=== PATIENT | female | born 1995 | race Caucasian/White ===

== ENCOUNTER 2016-06-29 08:21 | Emergency (ER) | payer MEDICAID ==
[~2016-06-29] VITALS: Wt 48.5 kg
[2016-06-29] MEDS ORDERED: AMOX1TAB10 PO (08:46)
[2016-06-29] MEDS ORDERED: HYDR-906 PO (08:46)
--- NOTE | 2016-06-29 08:54 | ERD ---
ER Documentation Chief Complaint Date/Time DATE: 06/29/16 TIME: 08:48 Chief Complaint TOOTHACHE, LEFT LOWER HPI Patient is a 21-year-old female who presents to the ER with left lower molar tooth pain. She states that she has had these symptoms for 2 weeks. She denies trauma. She states that she has pain with biting. She also states that the pain is radiating to her neck and head with some headaches. She denies dizziness or weakness. She denies fever or chills. She denies drainage. She states she went to the dentist yesterday but they were busy and she now has an appointment tomorrow. She denies difficulty swallowing, speaking or moving her jaw. ROS All systems reviewed and are negative except as per history of present illness. Medications Home Meds Active Scripts Hydrocodone/Acetaminophen ([place] 5-325 Tablet) 1 Each Tablet, 1 TAB PO Q6H Y for PAIN, #5 TAB Prov:DIPIKA SILVERIO PA-C 06/29/16 Amoxicillin/Potassium Clav (Amox-Clav 875-125 mg Tablet) 875-125 mg Tab, 1 TAB PO BID for 7 Days, #14 TAB Prov:DIPIKA SILVERIO PA-C 06/29/16 Allergies Allergies: Coded Allergies: No Known Allergies (Verified Allergy, 05/07/13) PMhx/Soc History of Surgery: Yes () Anesthesia Reaction: No Hx Neurological Disorder: No Hx Respiratory Disorders: No Hx Cardiac Disorders: No Hx Psychiatric Problems: No Hx Miscellaneous Medical Probl: No Hx Alcohol Use: No Hx Substance Use: No Hx Tobacco Use: No Physical Exam Vitals Vital Signs Date Time Temp Pulse Resp B/P Pulse Ox O2 Delivery O2 Flow Rate FiO2 06/29/16 08:26 98.0 83 18 146/75 98 Physical Exam GENERAL: Well-developed, well-nourished female. Appears in no acute distress. HEAD: Normocephalic, atraumatic. EYES: Pupils are equally reactive bilaterally. EOMs grossly intact. No conjunctival erythema. ENT: Moist mucous membranes. No uvula deviation. No kissing tonsils. No exudates. MOUTH: no redness, cheek swelling. tenderness to left molar. no drainage. pain with tongue depressor mastication test and manipulation. multiple caries throughout all molars. NECK: Supple. No lymphadenopathy or thyromegaly. No meningismus. negative kernig. negative brudinski. LUNG: Clear to auscultation bilaterally. No rhonchi, wheezing, rales or coarse breath sounds. HEART: Regular rate and rhythm. No murmurs, rubs or gallops. NEUROLOGIC: Alert and oriented. Moving all four extremities. 5/5 strength in all extremities. Normal speech. Steady gait. Procedures/MDM ER COURSE: I kept the patient and/or family informed of laboratory and diagnostic imaging results throughout the emergency room course. MEDICAL DECISION MAKING: This is a 21-year-old female who presents with left tooth pain. Vital signs were reviewed. Patient is afebrile. Patient is not hypoxic. Patient is not toxic or ill-appearing. Patient likely has left tooth pain. Low suspicion for peritonsillar abscess, strep pharyngitis, mononucleosis, dental abscess. She does not have any swelling in her cheeks or redness. No signs of abscess infection. Low suspicion for intracranial hemorrhage, meningitis, intracranial mass, concussion, temporal arteritis, stroke, elevated intracranial pressure, seizure. DISCHARGE: At this time, patient is stable for discharge and outpatient management with no new complaints during the ER course. Patient was sent home with Maeve Blackmon and to follow up with dentist this week. [facility] information given to patient.. Patient will be discharged home with instructions to recheck for new or worsening symptoms such as fever, nausea, weakness, LOC and to follow up with primary care in the next 1-2 days. Patient was advised to return to the ER for any new or worsening symptoms. Plan was discussed and patient and/ or family understands and agrees. Home instructions were given. Departure Diagnosis: Primary Impression: Toothache Condition: Stable Patient Instructions: Dental Pain Referrals: [facility] ([facility]) Additional Instructions: Llame al doctor MAANA y lisa natalya JAUN PARA DENTRO DE 1-2 AGLVAN.Dgale a la secretaria que nosotros le instruimos hacer esta juan.Avise o llame si batista condicin se empeora antes de la juan. Regresa aqui si peor o no mejor. sigue con la dentista clark semana. DIPIKA SILVERIO PA-C Jun 29, 2016 08:54
== END 2016-06-29 09:11 | disposition home or self-care (01) ==
LOC: FTE 08:21
DX: K08.89 Other specified disorders of teeth and supporting structures (principal)
CPT/HCPCS: 99284

== ENCOUNTER 2018-10-18 17:29 | Emergency (ER) | payer SELFPAY ==
[~2018-10-18] VITALS: Ht 149.9 cm; Wt 52.8 kg
[~2018-10-18 17:29] MED LIST: AMOX1TAB10 PO; HYDR-4011 PO
[2018-10-18 17:41] VITALS: BP 137/65; PULSE 89; RESP 18; Ht 149.9 cm; Wt 52.8 kg
== END 2018-10-18 19:36 | disposition left against medical advice (07) ==
LOC: FTE 17:29
DX: Z53.21 Procedure and treatment not carried out due to patient leaving prior to being seen by health care provider (principal)